=== PATIENT | male | born 1955 | race Caucasian/White ===

== ENCOUNTER 2017-09-19 16:13 | Inpatient (IN) | payer OTHER ==
[~2017-09-19] VITALS: Ht 177.8 cm; Wt 76.7 kg
--- NOTE | 2017-09-19 16:35 | NUR ---
PATIENT TO ROOM VIA WHEELCHAIR AND PHYSICIAN AT BEDSIDE FOR EVAL
--- NOTE | 2017-09-19 17:00 | NUR ---
IV INITIATED AND LABS AND BCX1 COLLECTED. PT TOLERATED WELL. PT POOR HISTORIAN BUT REPORTS LLQ AND RIGHT TESTICULAR PAIN. TEMP 99.5 AT THIS TIME. PT AWARE OF PLAN OF CARE AND WAIT TIME. RESP EVEN AND UNLABORED AND PT RESTING COMFORTABLY IN STRETCHER WITH GUARDS X 2 AT BEDSIDE. CALL RANDOLPH WITHIN REACH.
[2017-09-19] MEDS ORDERED: TAMSULOSIN HCL0.4 MG PO (17:11)
[2017-09-19] MEDS ORDERED: LIPITOR40 M1 PO (17:11)
[2017-09-19] MEDS ORDERED: OMEPRAZOLE20 MG PO (17:12)
[2017-09-19] MEDS ORDERED: DOCUSATE SOD100 M2 PO (17:13)
[2017-09-19] MEDS ORDERED: FINASTERIDE5 MG PO (17:13)
[2017-09-19] MEDS ORDERED: OLANZAPINE5 MG PO (17:14)
[2017-09-19] MEDS ORDERED: HALDOL DECAN50 MG/ML IM (17:15)
[2017-09-19] MEDS ORDERED: TEGRETOL200 MG PO (17:17)
[2017-09-19] MEDS ORDERED: TEGRETOL PO (17:17)
[2017-09-19] MEDS ORDERED: BENADRYL 50MG C50 MG PO (17:18)
[2017-09-19] MEDS ORDERED: BENZTROPINE1 MG PO (17:19)
[2017-09-19] MEDS ORDERED: BENZTROPINE2 MG PO (17:20)
[2017-09-19] MEDS ORDERED: NAPROXEN DR500 MG PO (17:21)
[2017-09-19] MEDS ORDERED: CONSTULOSE10 GM/15 M (17:23)
--- NOTE | 2017-09-19 17:23 | NUR ---
UNABLE TO VERIFY DOASGES OR TIME ON SEVERAL MEDICATION PHARMACY CONSULT PLACED. MAR PROVIDED FROM FACILITY BUT NO TIMES LISTED ON 2 MEDICATIONS.
--- NOTE | 2017-09-19 17:28 | NUR ---
425 MLS OF CLEAR, STRAW COLORED URINE VOIDED. IV ANTIBIOTICS INITIATED.
[2017-09-19 17:39] LABS: URINE BILIRUBIN - DIPSTICK NEGATIVE (NEGATIVE); URINE BLOOD DIPSTICK TRACE-INTACT (NEGATIVE); URINE COLOR YELLOW; URINE GLUCOSE - DIPSTICK NEGATIVE (NEGATIVE); URINE KETONE NEGATIVE (NEGATIVE); URINE NITRITE - DIPSTICK NEGATIVE (Negative); URINE PROTEIN - DIPSTICK NEGATIVE (NEG-TRACE); URINE SPECIFIC GRAVITY <=1.005; URINE UROBILINOGEN - DIPSTICK 0.2 E.U./dL (0.2)
[2017-09-19 17:40] LABS: URINE BACTERIA FEW hpf; URINE CLARITY SL CLOUDY; URINE LEUK ESTERASE SMALL (NEGATIVE); URINE RBC 0-2 RBC/hpf (0-5)
--- NOTE | 2017-09-19 18:15 | NUR ---
21ML OF STRAW COLORED CLEAR URINE INTO LEVY BAG
--- NOTE | 2017-09-19 18:31 | NUR ---
REPORT CALLED TO NICK PHOENIX.
--- NOTE | 2017-09-19 18:45 | NUR ---
Admission Note Report Given to: NICK PHOENIX Transported by: Wheelchair X Stretcher Transported with: X Nurse Transporter X Patent IV O2 X Lye Bath Operator PT TO ROOM 289 VIA STRTETCHER IN STABLE CONDITION WITH TELE MONITOR.
--- NOTE | 2017-09-19 18:53 | NUR ---
PT ARRIVED VIA STRETCHER ACCOMPANIED BY ER STAFF, ADMITTING CORN SHELLER OPERATOR NURSE AT BEDSIDE.
[2017-09-19 18:54] VITALS: BP 125/77
--- NOTE | 2017-09-19 21:37 | NUR ---
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 REPORTS HISTORY OF SEIZURES/PRECAUTIONS PLACED. PT.PROVIDES A THOROUGH MEDICAL HISTORY, APPEARS ANXIETY FREE AND RESPONSIVE TO QUESTIONS. SKIN IS INTACT, NO EDEMA NOTED, PULSES ARE STONG,DENIES N/V/PAIN. GUARDS AT BEDSIDE X2. PT AND GUARDS HAVE BEEN INSTRUCTED TO CALL IF PT.NEEDS TO AMBULATE OR HAS ANY OTHER NEEDS ARISE.
--- NOTE | 2017-09-19 22:22 | NUR ---
NOTIFIED PHYSICIAN THAT PT IS ON THE UNIT FLOOR. NO NEW ORDERS AT THIS TIME.
[2017-09-20 00:14] VITALS: BP 109/72
--- NOTE | 2017-09-20 01:58 | NUR ---
PT.MEDICATED ORDERS PROVIDE. PT.WAS AWAKE UPON ENTERING ROOM. GUARDS AT BEDSIDE. NO S/S OF DISTRESS AT THIS TIME. PT.DENIES ANY OTHER NEEDS AND IS GOING TO TRY AND SLEEP
[2017-09-20 04:24] VITALS: BP 102/67
--- NOTE | 2017-09-20 04:24 | NUR ---
PT.WAS SLEEPING UPON ENTERING ROOM, AWOKE TO OUR VOICES. GUARDS AT BEDSIDE X2. NO S/S OF DISTRESS, V/S ASSESSED. PT.TEMP 101.6/BLANKET REMOVED, ROOM TURNED COOLER. COOL PACKS TO BE PLACED.
--- NOTE | 2017-09-20 05:45 | NUR ---
PT.TEMP DOWN TO 100.0, ROOM COOLED, COOLPACKS IN PLACE, ONLY SHEET ON PT. DENIES ANY OTHER NEEDS. GUARDS 2X AT BEDSIDE
--- NOTE | 2017-09-20 07:00 | NUR ---
SHIFT CHANGE REPORT FROM SANDY LENNON AWAKE ALERT AND ORIENTED SITTING UP IN BED, NO C/O DISCOMFORT AT THIS TIME, TELE MONITOR IN PLACE, LEVY IN PLACE WITH CLEAR YELLOW URINE, GUARDS AT BEDSIDE, CALL RANDOLPH IN REACH.
[2017-09-20 08:28] VITALS: BP 102/60
--- NOTE | 2017-09-20 11:30 | NUR ---
PT REPORTED HE HAD BM AND NOT FLUSH TOILET INSTRUCTED, ON OBSERVATION NO STOOL WAS SEEN IN TIOLET NOR WAS THE TISSUE SOILED. I TOLD PT I DID NOT SEE ANY STOOL AND HE STRONGLY REPORTED HE HAD A BM BUT MAYBE THE STOOL WAS WHITE AND THAT WAS THE REASON I COULD NOT SEE IT.
--- NOTE | 2017-09-20 11:36 | NUR ---
Vancomycin consult Age: 61 years Weight: 76.7 kg Height: 177.8 cm Gender: Male SCR: 0.5 mg/dl Dosing weight: 76.7 kg IBW: 73.00 kg CRCL (ml/min): 137 Rasheed (hr-1): 0.141 Half-life (hrs): 4.92 Vd (liters): 53.69 (factor: 0.7 L/kg) Vancomycin 1250 mg Q8H to produce a predicted peak of 30.0 mcg/ml and a predicted trough of 15 mcg/ml based on (Population-based pharmacokinetic analysis).
[2017-09-20 11:59] VITALS: BP 116/69
--- NOTE | 2017-09-20 12:00 | NUR ---
OR STAFF RECEIVED PT, TRANSFERRED OFF UNIT VIA STRETCHER.
[2017-09-20 12:12] LABS: HEMATOCRIT 30.2 % (39.0-50.0); HEMOGLOBIN 10.2 g/dl (14.0-18.0); IMMATURE GRANULOCYTES 2.2 % (0.0-1.0); MEAN CORPUSCULAR HGB 29.1 pG CALC (26.0-32.0); MEAN CORPUSCULAR HGB CONC 33.8 g/L CALC (32.0-36.0); NEUT# 21.83 thou/uL (1.82-7.42); RED BLOOD COUNT 3.51 mill/uL (4.70-6.10); RED CELL DISTRI WIDTH 14.1 % (11.5-15.5)
--- NOTE | 2017-09-20 12:38 | NUR ---
AT 1200 PT DISPLAYED AND EPISODE WHERE HE APPEARED UNRESPONSIVE AND WOULD NOT RESPOND TO TACTILE OR VERBAL STIMULATION BUT DID OPEN HIS EYES MOMENTARILY TO LOOK TO SEE IF I HAD LEFT THE ROOM WHEN I CEASED FROM CALLING HIS NAME AND TOUCHING HIM. AFTER SEVERAL SECONDS WHEN I LOWERED HOB TO MEASURE VS HE OPENED HIS EYES AND EXPLAINED THAT WAS ONE OF HIS PANIC ATTACKS WHEN I ASKED HIM WHAT HAD HAPPENED. AFTER SEVERAL SECONDS THE EPISODE BEGAN AGAIN BUT SUDDENLY RESOLVED WHEN I AGAIN LOWERED THE HOB TELLING HIM I WILL PUT AWAY HIS MEAL TRAY UNTIL HE FEELS BETTER. HE WANTED TO EAT THEN SO HE WAS HIS NORMAL AGAIN. WILL CONTINUE TO MONITOR, CALL RANDOLPH IN REACH.
[2017-09-20 12:52] LABS: ANION GAP 12 (6-22 (CALC)); BUN 11 mg/dL (9-20); BUN/CREATININE RATIO 16 (12-20 (CALC)); CARBON DIOXIDE 27 mmol/l (22-30); CHLORIDE 102 mmol/l (95-108); CREATININE 0.7 mg/dL (0.7-1.3); GFR > 60 ML/MIN (>=60 (CALC)); GFR FOR AFR.AMER. > 60 ML/MIN (>=60 (CALC)); POTASSIUM 3.5 mmol/l (3.5-5.1)
[2017-09-20 12:53] LABS: SODIUM 137 mmol/l (137-146)
--- NOTE | 2017-09-20 14:55 | NUR ---
DR STEPHENSON HERE TO CONSULT WITH PT, INFORMED HIM OF POC AND PT STATED UNDERSTANDING. PT IS RESTING IN BED AT THIS TIME, GUARDS IN ROOM.
--- NOTE | 2017-09-20 16:08 | NUR ---
RESTING IN BED AT THIS TIME, ALL NEEDS MET/ADDRESSED, NO MORE C/O PANIC ATTACK SINCE THE PREVIOUSLY DOCUMENTED ONES, WILL CONTINUE TO MONITOR.
[2017-09-20 16:47] VITALS: BP 111/73
--- NOTE | 2017-09-20 19:15 | NUR ---
BEDSIDE REPORT RECEIVED FROM DAY NURSE. PT.IS IN LOW FOWLERS POSITION WATCHING TV W/GUARDS AT BEDSIDE X2. PT.REPORTS "FEELING BETTER," NO S/S OF DISTRESS NOTED. PT ENCOURAGED TO CALL IF ANY NEEDS ARISE.
[2017-09-20 19:30] VITALS: BP 120/75
--- NOTE | 2017-09-20 21:53 | NUR ---
PT.ASSESSMENT COMPLETED, LUNG SOUNDS CL/DIM, ABD DISTENDED AND FIRM WITH HYPOACTIVE BOWEL SOUNDS AND REPORTS OF TENDERNESS FAR LEFT FLANK SIDE. SKIN IS INTACT, NO NOTED EDEMA, STRONG PEDAL PULSES. PT.DENIES PAIN/N/V AT THIS TIME. WHILE AUSCULATING ABD PT STARTED BREATHING HEAVY FOR 15+- SECONDS AND STOPPED, WHEN ASKED IF HE IS OK HE REPLIED, "I HAD A PANIC ATTACK." PT.RETURNED TO APPEAR CALM, TALKATIVE. AT ONE POINT HE PROCEEDED TO SPEAK WHAT SOUNDED LIKE A FOREIGN LANGUAGE I WAS PREPARING HIS MEDICATIONS, HE SAID, "I SPEAK IN TONGUES." PT.IS COOPERATIVE WITH CARE, DENIES SOB. PT.MEDICATED ORDERS PROVIDE, ANTIBIOTIC IV THERAPY IS LEFT RUNNING AT THIS TIME. WILL CONTINUE TO MONITOR. GUARDS LEFT AT BEDSIDE 2X AND PT.IS SHACKLED TO BED BY LEFT ANKLE.
[2017-09-21 00:09] VITALS: BP 105/63
--- NOTE | 2017-09-21 02:05 | NUR ---
GUARDSX2 AT BEDSIDE. LIGHTS OUT,TV LOW, PT IS SLEEPING SOUNDLY AT THIS TIME. NO S/S OF DISTRESS
[2017-09-21 04:00] VITALS: BP 100/66
[2017-09-21 04:49] LABS: HEMOGLOBIN 9.2 g/dl (14.0-18.0); IMMATURE GRANULOCYTES 1.5 % (0.0-1.0); MEAN CELL VOLUME 85.2 fL CALC (80.0-100.0); MEAN CORPUSCULAR HGB CONC 34.1 g/L CALC (32.0-36.0); NEUT# 13.42 thou/uL (1.82-7.42); RED BLOOD COUNT 3.17 mill/uL (4.70-6.10); RED CELL DISTRI WIDTH 13.8 % (11.5-15.5)
--- NOTE | 2017-09-21 04:50 | NUR ---
PT.CALLED TO REPORT HE HAD A BM. UPON INSPECTION I VISUALIZED WHITE FROTHY MUCOUS COVERING BOTTOM OF HAT IN TOILET.
[2017-09-21 04:59] LABS: ANION GAP 11 (6-22 (CALC)); BUN 9 mg/dL (9-20); BUN/CREATININE RATIO 15 (12-20 (CALC)); CARBON DIOXIDE 26 mmol/l (22-30); CHLORIDE 101 mmol/l (95-108); CREATININE 0.6 mg/dL (0.7-1.3); GFR > 60 ML/MIN (>=60 (CALC)); GFR FOR AFR.AMER. > 60 ML/MIN (>=60 (CALC)); POTASSIUM 3.2 mmol/l (3.5-5.1); SODIUM 136 mmol/l (137-146)
--- NOTE | 2017-09-21 05:52 | NUR ---
PT.WAS SLEEPING,AWOKE TO MY VOICE. MEDICATED W/IV ANTIBIOTIC THERAPY ORDERS PROVIDE. PT.DENIES ANY OTHER NEEDS AT THIS TIME. CALL LIGHT IN PLACE, GUARDS X2 AT BEDSIDE. PT.SHACKLED TO BED AT LEFT ANKLE. PT.RETURNED TO SLEEP PRIOR TO MY LEAVING ROOM, NO S/S OF DISTRESS.
--- NOTE | 2017-09-21 07:00 | NUR ---
BEDSIDE REPORT RECEIVED BY RADHA. PT IS RESTING IN BED AND DENIES NEEDS AT THIS TIME. X2 GUARDS AT BEDSIDE. CALL LIGHT IN REACH.
[2017-09-21 07:57] VITALS: BP 101/67
--- NOTE | 2017-09-21 09:00 | NUR ---
ASSESSMENT DONE TELE IN PLACE. LUNG SOUND CLEAR/ DIMINISHED.POC DISCUSSED WITH PT. #20 LAC AND #20 LFA THAT APPEARS HEALTHY. PT DENIES NEEDS AT THIS TIME. SAFETY PRECAUTIONS REINFORCED AND CALL LIGHT IN REACH. X2 GUARDS AT BEDSIDE .
[2017-09-21 09:53] LABS: C. DIFFICILE TOXIN A&B NEGATIVE (NEGATIVE)
--- NOTE | 2017-09-21 12:00 | NUR ---
BREAST WORKER SETUP PT FOR A SHOWER. X2 GUARDS IN ROOM. PT DENIES ANY OTHER NEEDS AT THIS TIME.CALL LIGHT IN REACH.
[2017-09-21 12:15] VITALS: BP 114/72
[2017-09-21 16:00] VITALS: BP 125/83
--- NOTE | 2017-09-21 16:05 | NUR ---
PT HAS A TEMP OF 101.3. PO FLUIDS PROVIDE AND ROOM COOL. PT DENIES NEEDS AT THIS TIME. X2 GUARDS IN ROOM. CALL LIGHT IN REACH. CALLED LAM ROQUE RE: TEMP. ORDERS RECEIVED.
[2017-09-21 19:00] VITALS: BP 109/69
--- NOTE | 2017-09-21 19:18 | NUR ---
REPORT HAS BEEN RECEIVED FROM DAY NURSE. PT.WAS IN THE RESTROOM AND HAS BEEN ASSISTED BACK TO BED. 1 MODERATE RUNNY LIGHT BROWN STOOL EMPTIED. PT.LOCX3 AND STATES HE IS READY TO "GET OUT OF HERE." PT.IS PLEASANTLY CONVERSING. GUARDS X2 AT BEDSIDE AND PT.RESHACKLED TO BED VIA LEFT ANKLE. LEVY CATHETER PATENT AND DRAINING CLEAR YELLOW URINE, STRAP IN PLACE. PT.ASSESSED, LUNG SOUNDS ARE CLEAR AND SOMEWHAT DIM IN UPPER LOBES BILAT. ABD IS VERY HARD AND DISTENDED W/TENDERNESS REPORTED THROUGHOUT/ACTIVE BOWEL SOUNDS THROUGHOUT. SKIN INTACT AND NO EDEMA NOTED. NEURO'S INTACT. ROOM COOLED, BLANKETS REMOVED AND COOL CLOTH TO FORHEAD FOR TEMP OF 100.5 WILL CONTINUE TO MONITOR AND MEDICATE ORDERS PROVIDE.
--- NOTE | 2017-09-21 22:13 | NUR ---
PT.MEDICATED W/ANTIBIOTIC IV THERAPY. DENIES ANY NEEDS, TEMP RECHECK 99.2 IN RESPONSE TO TYELENOL PREVIOUSLY ADMINISTERED
[2017-09-22 00:02] VITALS: BP 95/58
--- NOTE | 2017-09-22 00:13 | NUR ---
ANTIBIOTIC THERAPY COMPLETED AT THIS TIME, PT IV FLUSHED, SITE APPEARS HEALTHY. PT.WAS SLEEPING SOUNDLY UPON ENTERING ROOM, NO S/S OF DISTRESS. GUARDS AT BEDSIDE X2.
[2017-09-22 04:00] VITALS: BP 127/83
[2017-09-22 04:43] LABS: HEMATOCRIT 29.9 % (39.0-50.0); IMMATURE GRANULOCYTES 0.5 % (0.0-1.0); MEAN CELL VOLUME 85.4 fL CALC (80.0-100.0); MEAN CORPUSCULAR HGB 28.6 pG CALC (26.0-32.0); MEAN CORPUSCULAR HGB CONC 33.4 g/L CALC (32.0-36.0); NEUT# 8.05 thou/uL (1.82-7.42); RED BLOOD COUNT 3.5 mill/uL (4.70-6.10); RED CELL DISTRI WIDTH 13.9 % (11.5-15.5)
[2017-09-22 04:55] LABS: BUN 11 mg/dL (9-20); BUN/CREATININE RATIO 16 (12-20 (CALC)); CARBON DIOXIDE 29 mmol/l (22-30); CHLORIDE 100 mmol/l (95-108); CREATININE 0.7 mg/dL (0.7-1.3); GFR > 60 ML/MIN (>=60 (CALC)); GFR FOR AFR.AMER. > 60 ML/MIN (>=60 (CALC)); SODIUM 135 mmol/l (137-146)
[2017-09-22 04:59] LABS: ANION GAP 10 (6-22 (CALC)); POTASSIUM 3.9 mmol/l (3.5-5.1)
--- NOTE | 2017-09-22 07:32 | NUR ---
SHIFT CHANGE REPORT FROM SANDY LENNON AWAKE ALERT AND ORIENTED, NO C/O DISCOMFORT, LEVY CATHETER IN PLACE WITH CLEAR YELLOW URINE,CALL RANDOLPH IN REACH.
[2017-09-22 08:29] VITALS: BP 113/72
[2017-09-22 11:10] VITALS: BP 116/77
--- NOTE | 2017-09-22 11:31 | NUR ---
HAD SHOWER EARLIER AND RESTING IN BED AT THIS TIME, ALL NEEDS ADDRESSED, CALL RANDOLPH IN REACH.
[2017-09-22 15:23] VITALS: BP 119/74
--- NOTE | 2017-09-22 15:53 | NUR ---
RESTING IN BED, IV ABT INFUSING, NO C/O DISCOMFORT, CALL RANDOLPH IN REACH.
--- NOTE | 2017-09-22 19:20 | NUR ---
REPORT GIVEN BY KEVEN. PATIENT RESTING IN BED WATCHING TV. RESP EVEN AND UNLABOED. FALL PRECATUIONS IN PLACE, PLAN OF CARE DISCUSSED, AND CALL LIGHT WITHIN REACH. INFORMED TO CALL WITH ANY CONCERNS OR QUESTIONS. NO S/S OF DISTRESS NOTED.
[2017-09-22 19:45] VITALS: BP 97/57
--- NOTE | 2017-09-23 | NUR ---
PATIENT RESTING WITH EYES CLOSED. RESP EVEN AND UNLABORED. NO S/S OF DISTRESS NOTED. 2 GUARDS PRESENT AT BEDISDE. WILL CONTINUE TO MONTIOR.
[2017-09-23 01:00] VITALS: BP 119/83
[2017-09-23 04:33] VITALS: BP 132/78
[2017-09-23 04:48] LABS: HEMATOCRIT 31.2 % (39.0-50.0); HEMOGLOBIN 10.5 g/dl (14.0-18.0); MEAN CORPUSCULAR HGB 28.6 pG CALC (26.0-32.0); MEAN CORPUSCULAR HGB CONC 33.7 g/L CALC (32.0-36.0); RED BLOOD COUNT 3.67 mill/uL (4.70-6.10); RED CELL DISTRI WIDTH 13.6 % (11.5-15.5)
--- NOTE | 2017-09-23 04:52 | NUR ---
PATIENT RESTING WITH EYES CLOSED. RESP EVEN AND UNLABORED. NO S/S DISTRESS NOTED. GUARDS PRESENT AT THE BEDSIDE.
[2017-09-23 04:55] LABS: ANION GAP 11 (6-22 (CALC)); BUN 12 mg/dL (9-20); BUN/CREATININE RATIO 17 (12-20 (CALC)); CARBON DIOXIDE 29 mmol/l (22-30); CHLORIDE 101 mmol/l (95-108); CREATININE 0.7 mg/dL (0.7-1.3); GFR > 60 ML/MIN (>=60 (CALC)); GFR FOR AFR.AMER. > 60 ML/MIN (>=60 (CALC)); POTASSIUM 4.3 mmol/l (3.5-5.1); SODIUM 137 mmol/l (137-146)
--- NOTE | 2017-09-23 07:00 | NUR ---
SHIFT CHANGE REPORT FROM ADORE, PT AWAKE ALERT AND ORIENTED SITTING UP IN BED, NO C/O DISCOMFORT, TELE MONITOR IN PLACE, LEVY CATHETER IN PLACE WITH CLEAR YELLOW URINE, GUARDS IN ROOM.
[2017-09-23 07:49] VITALS: BP 108/73
--- NOTE | 2017-09-23 10:32 | NUR ---
NURSE DINERO FROM [facility] REQUESTED UPDATE, INFORMATION WAS JUST FURNISHED, NURSE RESPONDED FACILITY IS ABLE TO PERFORM MOST PROCEDURES ON SITE AND TO HAVE PT RETURN [facility]. WILL CONTINUE TO MONITOR.
[2017-09-23 11:27] VITALS: BP 104/70
--- NOTE | 2017-09-23 12:00 | NUR ---
HAD ACCIDENT IN BR WITH LIQUID BM ALL OVER FLOOR, SHOWERED, SETTLED BACK IN BED, CALL RANDOLPH IN REACH, GUARDS IN ROOM.
--- NOTE | 2017-09-23 12:11 | NUR ---
PT COMPLETED COURSE OF GASTROGRAFIN @ 1210, RADIOLOGY INFORMED PER PROTOCOL.
[2017-09-23 15:23] VITALS: BP 128/83
--- NOTE | 2017-09-23 16:00 | NUR ---
RESTING IN BED, NEEDS ADDRESSED.
[2017-09-23 19:06] VITALS: BP 121/66
--- NOTE | 2017-09-23 19:51 | NUR ---
PATIENT AWAKE ALERT AND ORIENTED SHACKELED TO LEFT LE. TIFFANIE'SX2 AT BEDSIDE. LEVY CATH PATENT AND DRAINING YELLOW URINE. HEP LOCK TO RIGHT AC-SITE APPEARS HEALTHY AT THIS TIME. LUNGS ARE CLEAR. ABD IS SOFT WITH BS+. PATIENT WAS UP TO THE BR WITH ASSIST-MODERATE AMT OF LIGHT BROWN STOOL. NO PEDAL EDEMA NOTED AND PULSES PALPABLE. TEMP 101.0-WILL BE MEDICATED WITH TYLENOL 650MG PO FOR FEVER. SAFETY PRECAUTIONS REINFORCED. CALL LIGHT IN REACH. WILL CONT TO MONITOR.
--- NOTE | 2017-09-23 22:37 | NUR ---
PATIENT RESTING IN BED LLE SHAKELED TO BED. TIFFANIE'S AT BEDSIDE. VANCOMYCIN IN PROGRESS VIA RIGHT AC SITE-SITE REMAINS HEALTHY. APPEARS SLEEPING WITH EYES CLOSED. LEVY PATENT AND DRAINING YELLOW URINE. CALL LIGHT IN REACH. WILL CONT TO MONITOR.
--- NOTE | 2017-09-24 00:01 | NUR ---
BERONICA FINISHED. RESTING IN BED WITH TIFFANIE'S AT BEDSIDE. LLE SHAKELED TO BED. CALL LIGHT IN REACH. WILL CONT TO MONITOR.
[2017-09-24 00:02] VITALS: BP 104/67
--- NOTE | 2017-09-24 03:44 | NUR ---
PATIENT APPEARS SLEEPING WITH EYES CLOSED. RESP ARE EVEN AND UNLABORED. TIFFANIE'S AT BEDSIDE. LEVY PATENT AND DRAINING YELLOW URINE. CALL LIGHT IN REACH, WILL CONT TO MONITOR.
[2017-09-24 04:16] VITALS: BP 109/69
--- NOTE | 2017-09-24 05:47 | NUR ---
PATIENT AWAKE RESTING IN BED WITH TIFFANIE'S AT BEDSIDE-SHAKELED TO BED. LEVY CATH DRAINAGE BAG CHANGED. DRAINED 300CC OF YELLOW URINE FROM OLD. BAG. IV VANCO HUNG ORDERED VIA RIGHT AC SITE-SITE REMAINS HEALTHY AT THIS TIME. CALL LIGHT IN REACH. WILL CONT TO MONITOR.
--- NOTE | 2017-09-24 06:24 | NUR ---
CONSULT TO DR. MATTSON CALLED TO RADHA RN IN OR-DR. MATTSON DOING ENDO PROCEDURES TODAY AND WILL BE NOTIFIED.
--- NOTE | 2017-09-24 07:00 | NUR ---
SHIFT CHANGE REPORT FROM SANDY SHAH AWAKE ALERT AND ORIENTED SITTING UP IN BED AND LAUGHING HILARIOUSLY, NO C/O DISCOMFORT, TELE MONITOR IN PLACE, CALL RANDOLPH IN REACH, GUARDS IN ROOM.
[2017-09-24 07:44] VITALS: BP 96/59
--- NOTE | 2017-09-24 09:18 | NUR ---
S: WESTLEY KRAUS is a 61 M who presents with sepsis/UTI. He has a history of mental disorder, urinary retention. All medications in patient's chart were reviewed. O: VS: BP 96/59, P 83, RR 20,T 99.1 W 76.7 kg, 178 cm, Scr=0.7, CrCl= 117.7 ml/min Vancomycin trough 09/23/17 @1340 = 13 A: Blood culture on 08/20/17 showed no growth. Urine culture on 08/20/17 showed no growth. Vancomycin trough within therapeutic goal of 10-15 mcg/ml P: Patient is on cefepime 1 GM IV Q12H Vancomycin ordered for pharmacy to dose. Continue Vancomycin 1250 MG IV Q8H. Vancomycin trough is drawn before the dose on 09/25/17 at 13:30. Vancomycin goal trough is between <10-15 mcg/ml>. Pharmacy will follow and or advise on antibiotics use as needed.
--- NOTE | 2017-09-24 09:45 | NUR ---
DR MATTSON ROUNDED WITH PT, EVALUATED HIM AND INFORMED HIM OF PLAN OF CARE WHICS IS TO CONTINUE WITH CURRENT BOWEL REGIMEN, PT STATED UNDERSTANDING.
--- NOTE | 2017-09-24 10:19 | NUR ---
NURSE JORGE AT FACILITY CALLED FOR UPDATE @ 0720 THIS AM, INFORMED SHIFT CHANGE WAS JUST COMPLETED AND SHE WOULD HAVE MORE INFORMATION LATER. RIKI (END MAKER) LATER BROUGHT WRITTEN NOTE FOR US TO CALL FACILITY AGAIN AND GIVE UPDATE. NURSE JUST CALLED AGAIN, INFORMED OF CURRENT PLAN AND ADVISED CLOTH SHRINKER WILL NOTIFY THEM [facility].
[2017-09-24 11:25] VITALS: BP 109/65
--- NOTE | 2017-09-24 14:34 | NUR ---
SHOWERED AND REPORTED HE HAD ACCIDENT IN BR, FORMED STOOL SCATTERED ALL OVER SHOWER FLOOR, HOUSEKEEPING NOTIFIED AND CLEANED BR.
[2017-09-24 16:10] VITALS: BP 113/75
[2017-09-24 17:27] LABS: URINE BILIRUBIN - DIPSTICK NEGATIVE (NEGATIVE); URINE BLOOD DIPSTICK TRACE-INTACT (NEGATIVE); URINE COLOR YELLOW; URINE GLUCOSE - DIPSTICK NEGATIVE (NEGATIVE); URINE KETONE NEGATIVE (NEGATIVE); URINE LEUK ESTERASE NEGATIVE (NEGATIVE); URINE NITRITE - DIPSTICK NEGATIVE (Negative); URINE PROTEIN - DIPSTICK NEGATIVE (NEG-TRACE); URINE SPECIFIC GRAVITY 1.015; URINE UROBILINOGEN - DIPSTICK 0.2 E.U./dL (0.2)
[2017-09-24 17:28] LABS: URINE CLARITY CLEAR
[2017-09-24 20:00] VITALS: BP 113/67
--- NOTE | 2017-09-24 21:09 | NUR ---
PT.MEDICATED ORDERS PROVIDE AND ASSESSMENT COMPLETED AT THIS TIME. LUNG SOUNDS ARE DIM/CLEAR, ABD SOFT, NO DISTENSION NOTED AND NON-TENDER W/ACTIVE BOWEL SOUNDS. PT.IS TALKATIVE AND STATES THAT HE IS FEELING "MUCH BETTER." REPORTS 4XLOOSE BM'S TODAY. NO EDEMA NOTED, SKIN AND NEURO'S INTACT. GUARDS X2 AT BEDSIDE. DENIES ANY NEEDS AT THIS TIME EXCEPT PT IS ASKING FOR A SPRITE TO DRINK/PROVIDED. CALL LIGHT AT SIDE AND PT ENCOURAGED TO CALL IF ANY NEEDS ARISE.
[2017-09-25] VITALS: BP 111/67
--- NOTE | 2017-09-25 01:40 | NUR ---
PT.APPEARS TO BE SLEEPING AT THIS TIME, GUARDS X2 AT BS. NO S/S OF DISTRESS NOTED.
--- NOTE | 2017-09-25 03:03 | NUR ---
PT.AWAKE AND WATCHING TV W/LIGHTS OUT AND GUARDS AT BEDSIDE. PT.REPORTS FEELING GOOD. NO S/S OF DISTRESS NOTED. WATER REPLENISHED AND COFFEE PROVIDED TO GUARDS. CALL LIGHT WITHIN REACH AND PT ENCOURAGED TO CALL IF ANY NEEDS ARISE.
[2017-09-25 04:00] VITALS: BP 101/62
[2017-09-25 05:01] LABS: HEMATOCRIT 31.8 % (39.0-50.0); IMMATURE GRANULOCYTES 0.9 % (0.0-1.0); MEAN CELL VOLUME 83.9 fL CALC (80.0-100.0); MEAN CORPUSCULAR HGB CONC 34.6 g/L CALC (32.0-36.0); PLATELET COUNT 377 thou/uL (130-400); RED BLOOD COUNT 3.79 mill/uL (4.70-6.10); RED CELL DISTRI WIDTH 13.7 % (11.5-15.5)
[2017-09-25 05:43] LABS: ANION GAP 14 (6-22 (CALC)); BUN 11 mg/dL (9-20); BUN/CREATININE RATIO 17 (12-20 (CALC)); CARBON DIOXIDE 25 mmol/l (22-30); CHLORIDE 99 mmol/l (95-108); CREATININE 0.6 mg/dL (0.7-1.3); GFR > 60 ML/MIN (>=60 (CALC)); GFR FOR AFR.AMER. > 60 ML/MIN (>=60 (CALC)); MAGNESIUM 2.2 mg/dL (1.6-2.3); POTASSIUM 4.3 mmol/l (3.5-5.1); SODIUM 134 mmol/l (137-146)
[2017-09-25 05:48] LABS: BAND 2 % (0-8); MANUAL DIFFERENTIAL YES
[2017-09-25 05:49] LABS: PLATELET ESTIMATE NORMAL
--- NOTE | 2017-09-25 06:18 | NUR ---
PT.IS SLEEPING AT THIS TIME. GUARDS AT BEDSIDE. NO S/S OF DISTRESS, CALL LIGHT AT SIDE
[2017-09-25 08:15] VITALS: BP 113/72
--- NOTE | 2017-09-25 08:15 | NUR ---
PT RESTING IN BED, ALERT X3, ABLE TO MAKE NEEDS KNOWN. LS CLEAR THROUGHOUT, DIMINISHED AT THE BASES. ABDOMEN SOFT, NON-TENDER. BS X4 ACTIVE. PT STATES LAST BM 7. T-97.5, B/P 113/72, P-84, RR-18, SA02 100%RA. PT DENIES SOB, N/V, CHEST PAIN OR DISTRESS AT THIS TIME. NO EDEMA NOTED, SKIN CDI. 20G TO RW/SL FLUSHED WITHOUT DIFFICULTY, NO S/S OF INFILTRATION NOTED AT THIS TIME. SHACKLE TO LEFT ANKLE INTACT, PP+/STRONG, X2 GUARDS AT BEDSIDE. BED IN LOWEST POSITION, CALL LIGHT IN REACH, WILL MONITOR.
[2017-09-25 10:49] VITALS: BP 109/74
--- NOTE | 2017-09-25 12:15 | NUR ---
PT RESTING IN BED, OFFERS NO COMPLAINTS AT THIS TIME. CALL LIGHT IN REACH. GUARDS REMAIN AT BEDSIDE. WILL MONITOR
[2017-09-25] MEDS ORDERED: Levaquin PO (12:28)
--- NOTE | 2017-09-25 13:10 | NUR ---
RADIOLOGY AT BEDSIDE
--- NOTE | 2017-09-25 14:00 | NUR ---
IV site discontinued, cath intact. No edema , no redness, voices no discomfort.
--- NOTE | 2017-09-25 14:15 | NUR ---
IV INTACT UPON REMOVAL, PT TOLERATED WELL.
--- NOTE | 2017-09-25 14:56 | NUR ---
Discharge instructions given. Patient verbalizes understanding of same. [facility]. All belongings sent with pt.PAPER PRESCRIPTION FOR LEVAQUIN 500MG PO DAIY X 5 DAY WAS SENT WITH PT.
== END 2017-09-25 14:56 | disposition designated cancer center or children's hospital (05) | DRG 872 ==
LOC: ED 16:13 → ED-I 17:57 → ED 18:10 → MS2 18:11
PROVIDERS: Emergency Medicine; Nurse Practitioner; Nurse Practitioner Family; ADMIT Internal Medicine; ATTEND Internal Medicine
PROC: 0T9B70Z Drainage of Bladder with Drainage Device, Via Natural or Artificial Opening (ICD-10-PCS; principal; 2017-09-19)
PROC: 0TJB8ZZ Inspection of Bladder, Via Natural or Artificial Opening Endoscopic (ICD-10-PCS; 2017-09-21)
DX: A41.9 Sepsis, unspecified organism (principal); N13.6 Pyonephrosis; E87.1 Hypo-osmolality and hyponatremia; N13.8 Other obstructive and reflux uropathy; N40.1 Benign prostatic hyperplasia with lower urinary tract symptoms; R33.8 Other retention of urine; F79 Unspecified intellectual disabilities; F20.9 Schizophrenia, unspecified; K56.41 Fecal impaction; E78.5 Hyperlipidemia, unspecified; F32.9 Major depressive disorder, single episode, unspecified; F41.9 Anxiety disorder, unspecified; E87.6 Hypokalemia; S09.90XS Unspecified injury of head, sequela; X58.XXXS Exposure to other specified factors, sequela; Z91.5 Personal history of self-harm
CPT/HCPCS: J0692; J1650; J3370; Q9967

== ENCOUNTER 2017-10-02 09:55 | Day surgery (SDC) | payer OTHER ==
[~2017-10-02] VITALS: Ht 274.3 cm; Wt 73.5 kg
[2017-10-02] VITALS (7 sets, daily range): BP systolic 109–122; BP diastolic 61–77
[~2017-10-02 09:55] MED LIST: BENADRYL 50MG C50 MG PO; BENZTROPINE1 MG PO; BENZTROPINE2 MG PO; CONSTULOSE10 GM/15 M; DOCUSATE SOD100 M2 PO; FINASTERIDE5 MG PO; HALDOL DECAN50 MG/ML IM; LIPITOR40 M1 PO; Levaquin PO; NAPROXEN DR500 MG PO; OLANZAPINE5 MG PO; OMEPRAZOLE20 MG PO; TAMSULOSIN HCL0.4 MG PO; TEGRETOL PO; TEGRETOL200 MG PO
[2017-10-03 00:25] VITALS: BP 107/65
[2017-10-03 04:35] VITALS: BP 105/67
[2017-10-03 05:58] LABS: HEMATOCRIT 31.6 % (39.0-50.0); HEMOGLOBIN 10.7 g/dl (14.0-18.0); IMMATURE GRANULOCYTES 0.3 % (0.0-5.0); MEAN CELL VOLUME 85.2 fL CALC (80.0-100.0); MEAN CORPUSCULAR HGB 28.8 pG CALC (26.0-32.0); MEAN CORPUSCULAR HGB CONC 33.9 g/L CALC (32.0-36.0); NEUT# 3.7 thou/uL (1.82-7.42); RED BLOOD COUNT 3.71 mill/uL (4.70-6.10); RED CELL DISTRI WIDTH 13.7 % (11.5-15.5)
[2017-10-03 06:10] LABS: ALKALINE PHOSPHATASE 134 u/l (38-126); ANION GAP 11 (6-22 (CALC)); BILIRUBIN, TOTAL 0.3 mg/dL (0.0-1.4); BUN 9 mg/dL (9-20); BUN/CREATININE RATIO 14 (12-20 (CALC)); CARBON DIOXIDE 30 mmol/l (22-30); CHLORIDE 101 mmol/l (95-108); CREATININE 0.7 mg/dL (0.7-1.3); GFR > 60 ML/MIN (>=60 (CALC)); GFR FOR AFR.AMER. > 60 ML/MIN (>=60 (CALC)); POTASSIUM 4.3 mmol/l (3.5-5.1); SGPT/ALT 57 u/l (21-72); SODIUM 137 mmol/l (137-146); TOTAL PROTEIN 6.1 g/dL (6.3-8.2)
[2017-10-03 06:12] LABS: SGOT/AST 25 u/l (17-59)
[2017-10-03] MEDS ORDERED: AZO TABS95 MG PO (07:17)
[2017-10-03] MEDS ORDERED: BETHANECHOL25 MG PO (07:17)
[2017-10-03] MEDS ORDERED: BACTRIM DS1 TAB PO (07:18)
[2017-10-03] MEDS ORDERED: TORADOL PO (07:18)
== END 2017-10-03 10:25 | disposition designated cancer center or children's hospital (05) | DRG 714 ==
LOC: ORM 09:55 → MS2 13:05 → ORM 10-03 10:25
PROVIDERS: ATTEND Urology
PROC: 0V508ZZ Destruction of Prostate, Via Natural or Artificial Opening Endoscopic (ICD-10-PCS; principal; 2017-10-02)
DX: N40.1 Benign prostatic hyperplasia with lower urinary tract symptoms (principal); R33.8 Other retention of urine; R35.1 Nocturia; R39.15 Urgency of urination; R39.12 Poor urinary stream; F79 Unspecified intellectual disabilities; N50.89 Other specified disorders of the male genital organs

== ENCOUNTER 2019-09-27 14:07 | Emergency (ER) | payer OTHER ==
[~2019-09-27] VITALS: Ht 177.8 cm; Wt 100.0 kg
[~2019-09-27 14:07] MED LIST changes: +AZO TABS95 MG PO; +BACTRIM DS1 TAB PO; +BETHANECHOL25 MG PO; +TORADOL PO
[2019-09-27] MEDS ORDERED: HALOPERIDOL IM (16:59)
[2019-09-27] MEDS ORDERED: CARBAMAZEPIN100 M1 PO (17:00)
[2019-09-27] MEDS ORDERED: FLUOXETINE20 MG PO (17:01)
[2019-09-27] MEDS ORDERED: ZYPREXA20 MG PO (17:02)
[2019-09-27] MEDS ORDERED: METAMUCIL FIBE51.7 % PO (17:05)
[2019-09-27] MEDS ORDERED: MOTRIN800 MG PO (17:06)
[2019-09-27 17:21] VITALS: BP 176/89
== END 2019-09-27 17:37 | disposition designated cancer center or children's hospital (05) | DRG 923 ==
LOC: ED 14:07
DX: T76.21XA Adult sexual abuse, suspected, initial encounter (principal); F79 Unspecified intellectual disabilities; Y92.149 Unspecified place in prison as the place of occurrence of the external cause

== ENCOUNTER 2019-10-14 14:48 | Emergency (ER) | payer OTHER ==
[~2019-10-14] VITALS: Ht 177.8 cm; Wt 100.0 kg
[~2019-10-14 14:48] MED LIST changes: +CARBAMAZEPIN100 M1 PO; +FLUOXETINE20 MG PO; +HALOPERIDOL IM; +METAMUCIL FIBE51.7 % PO; +MOTRIN800 MG PO; +ZYPREXA20 MG PO
[2019-10-14 15:50] LABS: HEMATOCRIT 40.3 % (39.0-50.0); HEMOGLOBIN 12.9 g/dl (14.0-18.0); IMMATURE GRANULOCYTES 0.3 % (0.0-5.0); MEAN CELL VOLUME 90.6 fL CALC (80.0-100.0); NEUT# 6.57 thou/uL (1.82-7.42); RED BLOOD COUNT 4.45 mill/uL (4.70-6.10)
[2019-10-14 15:53] LABS: INTERNATIONAL NORMALIZED RATIO 1.1 RATIO (0.7-1.3); PROTHROMBIN TIME 11.1 SECONDS (9.0-12.5)
[2019-10-14 16:03] LABS: ALBUMIN 4.3 g/dL (3.2-5.0); ALKALINE PHOSPHATASE 140 u/l (38-126); BUN 16 mg/dL (8-23); BUN/CREATININE RATIO 28 (12-20 (CALC)); CHLORIDE 109 mmol/l (95-108); CREATININE 0.6 mg/dL (0.7-1.3); ETHYL ALCOHOL 0 mg/dl (0-30); GFR > 60 ML/MIN (>=60 (CALC)); GFR FOR AFR.AMER. > 60 ML/MIN (>=60 (CALC)); LIPASE 36 u/l (23-300); MAGNESIUM 2.4 mg/dL (1.6-2.3); POTASSIUM 4.6 mmol/l (3.5-5.1); SGOT/AST 137 u/l (19-48); SODIUM 141 mmol/l (137-146); TOTAL PROTEIN 7.2 g/dL (6.3-8.2)
[2019-10-14 16:05] LABS: ANION GAP 18 (6-22 (CALC)); C-REACTIVE PROTEIN > 9.0 mg/dL (0-0.9); CARBON DIOXIDE 19 mmol/l (22-30)
[2019-10-14 16:31] LABS: TSH, 3RD GENERATION 2.12 uIU/mL (0.47 - 4.68)
[2019-10-14 16:36] LABS: URINE BILIRUBIN - DIPSTICK NEGATIVE (NEGATIVE); URINE BLOOD DIPSTICK NEGATIVE (NEGATIVE); URINE COLOR YELLOW; URINE GLUCOSE - DIPSTICK NEGATIVE (NEGATIVE); URINE KETONE >=80 mg/dL (NEGATIVE); URINE LEUK ESTERASE NEGATIVE (NEGATIVE); URINE NITRITE - DIPSTICK NEGATIVE (Negative); URINE PROTEIN - DIPSTICK NEGATIVE (NEG-TRACE); URINE SPECIFIC GRAVITY 1.025; URINE UROBILINOGEN - DIPSTICK 0.2 E.U./dL (0.2)
[2019-10-14 19:36] VITALS: BP 119/76
--- NOTE | 2019-10-16 07:59 | NUR ---
PRELIM BLOOD CX SHOWS GRAM POSITIVE COCCI IN 2 BOTTLES. SPOKE WITH MONIKA DURHAM AT [facility], REPORTED RESULTS, AND FAXED RESULTS TO [phone]. FILL FOLLOW UP WITH FINAL
--- NOTE | 2019-10-17 10:00 | NUR ---
FINAL BLOOD CX RESULTS FAXED TO [facility] NURSE NIKOLAY [phone]
== END 2019-10-14 19:36 | disposition short-term general hospital (02) | DRG 176 ==
LOC: ED 14:48
PROVIDERS: Family Medicine
PROC: 0T9B70Z Drainage of Bladder with Drainage Device, Via Natural or Artificial Opening (ICD-10-PCS; principal; 2019-10-14)
PROC: 0BH17EZ Insertion of Endotracheal Airway into Trachea, Via Natural or Artificial Opening (ICD-10-PCS; 2019-10-14)
PROC: 02HV33Z Insertion of Infusion Device into Superior Vena Cava, Percutaneous Approach (ICD-10-PCS; 2019-10-14)
DX: I26.99 Other pulmonary embolism without acute cor pulmonale (principal); R41.82 Altered mental status, unspecified; F79 Unspecified intellectual disabilities; F20.9 Schizophrenia, unspecified; Z20.828 Contact with and (suspected) exposure to other viral communicable diseases
CPT/HCPCS: J1644; Q9967